=== PATIENT | female | born 1945 | race Caucasian/White ===

== ENCOUNTER → 2018-08-30 | Outpatient (CLI) | payer MEDICARE, OTHER ==
[~2018-08-30] MED LIST: GADOBUTROL 10 MMOL/10 ML PFS ONE
== END | disposition home or self-care (01) ==
LOC: CFH 09:21
PROVIDERS: ATTEND Nurse Practitioner
DX: R51 Headache (principal); Z86.73 Personal history of transient ischemic attack (TIA), and cerebral infarction without residual deficits
CPT/HCPCS: 70553; A9585

== ENCOUNTER → 2018-08-31 | Outpatient (CLI) | payer MEDICARE, OTHER | END | disposition home or self-care (01) | LOC: CVU 09:01 | PROVIDERS: ATTEND Internal Medicine Cardiovascular Disease | DX: I08.3 Combined rheumatic disorders of mitral, aortic and tricuspid valves (principal); I11.9 Hypertensive heart disease without heart failure; E78.5 Hyperlipidemia, unspecified; Z85.3 Personal history of malignant neoplasm of breast | CPT/HCPCS: 0399T; 93306 ==

== ENCOUNTER 2018-09-26 10:45 | Day surgery (SDC) | payer MEDICARE, OTHER ==
[~2018-09-26] VITALS: Ht 167.6 cm; Wt 117.3 kg
[2018-09-26] MEDS ORDERED: SODIUM CHLORIDE 0.9% 1,000 ML IV SCH ×2 (11:00→13:54)
[2018-09-26] MEDS ORDERED: DIPHENHYDRAMINE 50 MG/ML, 1ML IVPush ONE (11:30)
[2018-09-26 11:31] VITALS: BP 150/53
[2018-09-26] MEDS ORDERED: DIPH-419 PO (11:43)
[2018-09-26] MEDS ORDERED: SERT100T32 PO (11:43)
[2018-09-26] MEDS ORDERED: ASPI-496 PO (11:43)
[2018-09-26] MEDS ORDERED: ANAS1TAB PO (11:43)
[2018-09-26] MEDS ORDERED: POTA10TA PO (11:43)
[2018-09-26] MEDS ORDERED: GUAI400T66 PO (11:43)
[2018-09-26] MEDS ORDERED: PRAV40TA2 PO (11:43)
[2018-09-26] MEDS ORDERED: IRBE300T16 PO (11:43)
[2018-09-26] MEDS ORDERED: FURO-93 PO (11:43)
[2018-09-26] MEDS ORDERED: METO25TA91 PO ×4 (11:43→16:07)
[2018-09-26] MEDS ORDERED: DIPHENHYDRAMINE 50 MG/ML, 1ML ONE (11:54)
[2018-09-26 11:59] VITALS: BP 150/53
[2018-09-26] MEDS ORDERED: PLEASE ENTER HEIGHT AND WEIGHT MC SCH (12:00)
[2018-09-26] MEDS ORDERED: MIDAZOLAM 1 MG/ML, 2ML ONE (12:49)
[2018-09-26] MEDS ORDERED: FENTANYL PF 100 MCG/2ML ONE ×2 (12:49→13:35)
[2018-09-26] MEDS ORDERED: VERAPAMIL 2.5 MG/ML, 2ML ONE (13:09)
[2018-09-26] MEDS ORDERED: HEPARIN 1,000 UNITS/ML, 10ML ONE (13:09)
[2018-09-26] MEDS ORDERED: LIDOCAINE-MPF 1%, 5ML ONE (13:09)
[2018-09-26] MEDS ORDERED: METO50TA82 PO (15:46)
== END 2018-09-26 16:20 | disposition home or self-care (01) ==
LOC: CACL 10:45
PROVIDERS: ATTEND Internal Medicine Cardiovascular Disease
DX: I25.10 Atherosclerotic heart disease of native coronary artery without angina pectoris (principal); I35.0 Nonrheumatic aortic (valve) stenosis; E78.2 Mixed hyperlipidemia; I10 Essential (primary) hypertension; Z79.82 Long term (current) use of aspirin
CPT/HCPCS: 93454; 99156; 99157; C1769; C1894; J1200; J1644; J2250; J3010; Q9967

== ENCOUNTER 2018-10-11 10:16 | Outpatient (CLI) | payer MEDICARE, OTHER ==
[~2018-10-11 10:16] MED LIST changes: +ANAS1TAB PO; +ASPI-496 PO; +DIPH-419 PO; +FURO-93 PO; -GADOBUTROL 10 MMOL/10 ML PFS ONE; +GUAI400T66 PO; +IRBE300T16 PO; +METO25TA91 PO; +METO50TA82 PO; +POTA10TA PO; +PRAV40TA2 PO; +SERT100T32 PO
[2018-10-11] MEDS ORDERED: OMNIPAQUE 350 MG/ML, 150 ML BOTTLE ONE (11:49)
== END 2018-10-11 23:59 | disposition home or self-care (01) ==
LOC: RAD 10:16
PROVIDERS: ATTEND Internal Medicine Cardiovascular Disease
DX: K76.0 Fatty (change of) liver, not elsewhere classified (principal); I35.0 Nonrheumatic aortic (valve) stenosis; K57.30 Diverticulosis of large intestine without perforation or abscess without bleeding; M47.817 Spondylosis without myelopathy or radiculopathy, lumbosacral region; M47.814 Spondylosis without myelopathy or radiculopathy, thoracic region; I70.0 Atherosclerosis of aorta; J98.8 Other specified respiratory disorders
CPT/HCPCS: 71275; 74174; 94060; 94726; 94729; Q9967

== ENCOUNTER 2018-10-30 07:56 | Inpatient (IN) | payer MEDICARE, OTHER ==
[~2018-10-30] VITALS: Ht 167.6 cm; Wt 115.9 kg
[2018-10-30] MEDS ORDERED: SODIUM CHLORIDE 0.9% 1,000 ML IV ONE (08:14)
[2018-10-30 08:16] VITALS: BP 141/83
[2018-10-30] MEDS ORDERED: CHLORHEXIDINE 15 ML UDC MM PRN (08:30)
[2018-10-30] MEDS ORDERED: ONDANSETRON 2MG/ML, 2ML IVPush PRN ×2 (08:30→10:30)
[2018-10-30 08:35] LABS: BASOPHILS # (AUTO) 0.03 x10^3/uL (0-0.1); BASOPHILS % (AUTO) 0 % (0-1); EOSINOPHILS # (AUTO) 0.11 x10^3/uL (0-0.4); EOSINOPHILS % (AUTO) 2 % (1-7); LYMPHOCYTES % (AUTO) 28 % (22-44); MD NO; MEAN CORPUSCULAR HEMOGLOBIN 29.8 pg (27.0-34.8); MEAN CORPUSCULAR HGB CONC 32.8 g/dL (32.4-35.8); MEAN CORPUSCULAR VOLUME 90.9 fL (80-100); MEAN PLATELET VOLUME 10.7 fL (7.4-10.4); MONOCYTES % (AUTO) 10 % (2-9); NEUTROPHILS # (AUTO) 4.05 x10^3/uL (1.8-6.8); NEUTROPHILS % (AUTO) 60 % (42-75); PLATELET COUNT 149 x10^3/uL (130-400); RED BLOOD COUNT 4.62 x10^6/uL (3.82-5.3); RED CELL DISTRIBUTION WIDTH 14.4 % (9.6-15.2)
[2018-10-30 08:45] LABS: INTERNATIONAL NORMALIZED RATIO 0.95 (0.93-1.1)
[2018-10-30 08:47] LABS: ALANINE AMINOTRANSFERASE 28 U/L (12-78); ALBUMIN 3.4 g/dL (3.4-5.0); ANION GAP 4 mmol/L (5-15); CALCIUM 9.3 mg/dL (8.5-10.1); CHLORIDE 113 mmol/L (98-107)
[2018-10-30 08:51] LABS: ALKALINE PHOSPHATASE 110 U/L (45-117); BILIRUBIN,TOTAL 0.3 mg/dL (0.2-1.0); CREATININE 0.73 mg/dL (0.55-1.02); TOTAL PROTEIN 7.6 g/dL (6.4-8.2)
[2018-10-30] MEDS ORDERED: PROTAMINE SULFATE 10 MG/ML, 5ML ONE (09:00)
[2018-10-30] MEDS ORDERED: CEFAZOLIN 1,000 MG ONE (09:05)
[2018-10-30] MEDS ORDERED: ROCURONIUM 10 MG/ML,10ML ONE (09:05)
[2018-10-30] MEDS ORDERED: SUCCINYLCHOLINE 20 MG/ML, 10ML ONE (09:05)
[2018-10-30] MEDS ORDERED: ONDANSETRON 2MG/ML, 2ML ONE (09:05)
[2018-10-30] MEDS ORDERED: NALOXONE 0.4 MG/ML, 1ML ONE (09:05)
[2018-10-30] MEDS ORDERED: PROPOFOL 10 MG/ML, 20ML ONE (09:05)
[2018-10-30] MEDS ORDERED: FENTANYL PF 250 MCG/5ML ONE (09:43)
[2018-10-30] MEDS ORDERED: LABETALOL 5 MG/ML SYRINGE IVPush PRN (10:30)
[2018-10-30] MEDS ORDERED: METOPROLOL SUCCINATE 25 MG TAB.ER.24H PO SCH (10:30)
[2018-10-30] MEDS ORDERED: HYDROcodone/APAP 5/325 TABLET PO PRN (10:30)
[2018-10-30] MEDS ORDERED: GUAIFENESIN 200 MG TABLET PO PRN (10:30)
[2018-10-30] MEDS ORDERED: hydrALAzine 20 MG/ML, 1ML IVPush PRN (10:30)
[2018-10-30] MEDS: IRBESARTAN 300 MG TABLET PO SCH (10:59)
[2018-10-30] MEDS: ASPIRIN 81 MG TABLET EC PO SCH (11:00)
[2018-10-30] MEDS: POTASSIUM CHLORIDE 10 MEQ TABLET.ER PO SCH (11:00)
[2018-10-30] MEDS: FUROSEMIDE 20 MG TABLET PO SCH (11:01)
[2018-10-30] MEDS ORDERED: DIPHENHYDRAMINE 25 MG CAPSULE PO PRN (11:30)
[2018-10-30 12:30] VITALS: BP 163/77
[2018-10-30 19:26] VITALS: BP 131/61
[2018-10-30] MEDS: ACETAMINOPHEN 325 MG TABLET PO PRN (20:25)
[2018-10-30] MEDS ORDERED: CLOPIDOGREL 300 MG TABLET PO ONE (21:00)
[2018-10-30] MEDS ORDERED: PRAVASTATIN 40 MG TABLET PO SCH (21:00)
[2018-10-31 01:52] VITALS: BP 134/69
[2018-10-31 06:09] LABS: ANION GAP 5 mmol/L (5-15); CALCIUM 9.2 mg/dL (8.5-10.1); CHLORIDE 110 mmol/L (98-107)
[2018-10-31 06:10] LABS: CREATININE 0.65 mg/dL (0.55-1.02)
[2018-10-31 07:32] VITALS: BP 160/76
[2018-10-31 07:34] LABS: MEAN CORPUSCULAR HEMOGLOBIN 30.9 pg (27.0-34.8); MEAN CORPUSCULAR HGB CONC 33.8 g/dL (32.4-35.8); MEAN CORPUSCULAR VOLUME 91.3 fL (80-100); MEAN PLATELET VOLUME 10.5 fL (7.4-10.4); PLATELET COUNT 98 x10^3/uL (130-400); RED BLOOD COUNT 3.89 x10^6/uL (3.82-5.3); RED CELL DISTRIBUTION WIDTH 14.8 % (9.6-15.2)
[2018-10-31 07:38] LABS: BASOPHILS # (AUTO) 0.03 x10^3/uL (0-0.1); BASOPHILS % (AUTO) 0 % (0-1); EOSINOPHILS # (AUTO) 0.09 x10^3/uL (0-0.4); EOSINOPHILS % (AUTO) 1 % (1-7); LYMPHOCYTES # (AUTO) 1.89 x10^3/uL (1-3.4); LYMPHOCYTES % (AUTO) 23 % (22-44); MD SCAN; MONOCYTES # (AUTO) 0.75 x10^3/uL (0.2-0.8); MONOCYTES % (AUTO) 9 % (2-9); NEUTROPHILS # (AUTO) 5.37 x10^3/uL (1.8-6.8); NEUTROPHILS % (AUTO) 66 % (42-75)
[2018-10-31] MEDS ORDERED: CLOP75TA PO (08:31)
[2018-10-31] MEDS ORDERED: SERTRALINE 100MG TABLET PO SCH (09:00)
[2018-10-31] MEDS ORDERED: ANASTROZOLE 1 MG TABLET PO SCH (09:00)
[2018-10-31] MEDS ORDERED: CLOPIDOGREL 75 MG TABLET PO SCH (09:00)
[2018-10-31] MEDS: POTASSIUM CHLORIDE 10 MEQ TABLET.ER PO SCH (10:29)
[2018-10-31] MEDS: ASPIRIN 81 MG TABLET EC PO SCH (10:30)
[2018-10-31] MEDS: FUROSEMIDE 20 MG TABLET PO SCH ×2 (10:30→10:34)
[2018-10-31] MEDS: IRBESARTAN 300 MG TABLET PO SCH (10:31)
[2018-10-31 11:06] VITALS: BP 160/86
[2018-10-31 11:11] VITALS: BP 183/83
[2018-10-31 11:16] VITALS: BP 168/73
[2018-10-31] MEDS: ACETAMINOPHEN 325 MG TABLET PO PRN (12:31)
== END 2018-10-31 14:00 | disposition home or self-care (01) | DRG 266 ==
LOC: ORIP 07:56 → CCU 10:28 → 5SO 11:38 → DCLOUNGE 10-31 13:42
PROVIDERS: ADMIT Internal Medicine Cardiovascular Disease; ATTEND Internal Medicine Cardiovascular Disease
PROC: B24BZZ4 Ultrasonography of Heart with Aorta, Transesophageal (ICD-10-PCS; 2018-10-30)
PROC: 02RF38Z Replacement of Aortic Valve with Zooplastic Tissue, Percutaneous Approach (ICD-10-PCS; principal; 2018-10-30 10:00)
DX: I35.0 Nonrheumatic aortic (valve) stenosis (principal); Z00.6 Encounter for examination for normal comparison and control in clinical research program; I50.33 Acute on chronic diastolic (congestive) heart failure; Z68.41 Body mass index [BMI] 40.0-44.9, adult; I44.1 Atrioventricular block, second degree; I11.0 Hypertensive heart disease with heart failure; E66.9 Obesity, unspecified; I07.1 Rheumatic tricuspid insufficiency; E78.5 Hyperlipidemia, unspecified; D69.6 Thrombocytopenia, unspecified; Z85.3 Personal history of malignant neoplasm of breast; Z91.048 Other nonmedicinal substance allergy status
CPT/HCPCS: 33361; 36415; 80048; 80053; 83880; 85025; 85347; 85610; 85730; 86850; 86900; 86923; 87081; 93005; 93308; 93312; 93321; 93325; 93355; C1760; C1769; C1894; G0378; J0690; J2310; J2405; J2704; J2720; J3010; J0330; J0360; J7030; Q9967

== ENCOUNTER → 2018-11-26 | Outpatient (CLI) | payer MEDICARE, OTHER ==
[~2018-11-26] MED LIST changes: +CLOP75TA PO
== END | disposition home or self-care (01) ==
LOC: CVU 15:00
PROVIDERS: ATTEND Internal Medicine Cardiovascular Disease
DX: I08.8 Other rheumatic multiple valve diseases (principal); I10 Essential (primary) hypertension; E78.5 Hyperlipidemia, unspecified
CPT/HCPCS: 93306

== ENCOUNTER → 2019-08-07 | Outpatient (CLI) | payer MEDICARE, OTHER | END | disposition home or self-care (01) | LOC: CVU 07:54 | PROVIDERS: ATTEND Registered Nurse | DX: I08.8 Other rheumatic multiple valve diseases (principal); I11.9 Hypertensive heart disease without heart failure; I48.0 Paroxysmal atrial fibrillation; E78.5 Hyperlipidemia, unspecified; R42 Dizziness and giddiness; Z95.2 Presence of prosthetic heart valve | CPT/HCPCS: 93306 ==

== ENCOUNTER 2019-08-09 09:17 | Day surgery (SDC) | payer MEDICARE, OTHER ==
[~2019-08-09] VITALS: Ht 167.6 cm; Wt 115.9 kg
[~2019-08-09 09:17] MED LIST changes: -GUAI400T66 PO; +GUAI400T81 PO; -IRBE300T16 PO; +IRBE300T8 PO
[2019-08-09] MEDS ORDERED: LIDOCAINE 2%, 20ML ONE (10:00)
== END 2019-08-09 10:42 | disposition home or self-care (01) ==
LOC: CACL 09:17
PROVIDERS: ATTEND Internal Medicine Cardiovascular Disease
DX: Z53.9 Procedure and treatment not carried out, unspecified reason (principal); Z45.09 Encounter for adjustment and management of other cardiac device
CPT/HCPCS: 33285; C1764

== ENCOUNTER → 2019-11-22 | Outpatient (CLI) | payer MEDICARE, OTHER | END | disposition home or self-care (01) | LOC: CVU 09:00 | PROVIDERS: ATTEND Internal Medicine Cardiovascular Disease | DX: I08.1 Rheumatic disorders of both mitral and tricuspid valves (principal); I65.29 Occlusion and stenosis of unspecified carotid artery; I48.91 Unspecified atrial fibrillation; I10 Essential (primary) hypertension; E78.5 Hyperlipidemia, unspecified | CPT/HCPCS: 93306 ==

== ENCOUNTER → 2020-03-26 | Outpatient (CLI) | payer MEDICARE, OTHER | END | disposition home or self-care (01) | LOC: RAD 10:31 | PROVIDERS: ATTEND Nurse Practitioner | DX: I73.9 Peripheral vascular disease, unspecified (principal); G31.89 Other specified degenerative diseases of nervous system; G45.9 Transient cerebral ischemic attack, unspecified; R42 Dizziness and giddiness; I48.0 Paroxysmal atrial fibrillation | CPT/HCPCS: 70551 ==

== ENCOUNTER 2020-09-29 08:05 | Outpatient (CLI) | payer MEDICARE, OTHER ==
[~2020-09-29 08:05] MED LIST changes: +REGADENOSON 0.4 MG/5 ML SYRINGE ONE
== END 2020-09-30 23:59 | disposition home or self-care (01) ==
LOC: CFH 08:05
PROVIDERS: ATTEND Physician Assistant Medical
DX: I25.9 Chronic ischemic heart disease, unspecified (principal); I10 Essential (primary) hypertension; R07.9 Chest pain, unspecified
CPT/HCPCS: 78452; 93017; A9502; J2785

== ENCOUNTER → 2020-10-19 | Outpatient (CLI) | payer MEDICARE, OTHER ==
[~2020-10-19] MED LIST changes: -REGADENOSON 0.4 MG/5 ML SYRINGE ONE
== END | disposition home or self-care (01) ==
LOC: CVU 13:49
PROVIDERS: ATTEND Registered Nurse
DX: I08.8 Other rheumatic multiple valve diseases (principal); I11.9 Hypertensive heart disease without heart failure; R07.9 Chest pain, unspecified; I48.0 Paroxysmal atrial fibrillation
CPT/HCPCS: 93306; 93356